=== PATIENT | female | born 1975 | race Caucasian/White ===

== ENCOUNTER 2017-04-26 19:08 | Emergency (ER) | payer OTHER ==
[~2017-04-26] VITALS: Ht 182.9 cm; Wt 90.7 kg
[2017-04-26] MEDS ORDERED: ASPIRIN 325 MG TABLET PO ONE (19:30)
[2017-04-26 19:49] LABS: BASO # 0.1 x10^3/uL (0.0-0.2); BASO % 1 % (0-3); EOS % 2 % (0-3); HEMATOCRIT 35.7 % (36.0-47.0); HEMOGLOBIN 12.3 g/dL (12.0-15.5); LYMPH # 2.5 x10^3/uL (1.0-4.8); LYMPH % 31 % (24-48); MEAN CORPUSCULAR HEMOGLOBIN 32 pg (25-35); MEAN CORPUSCULAR HGB CONC 34 g/dL (31-37); MEAN CORPUSCULAR VOLUME 94 fL (79-100); MONO % 8 % (0-9); NEUT % 59 % (31-73); PLATELET COUNT 340 x10^3/uL (140-400); RED CELL DISTRIBUTION WIDTH 12.9 % (11.5-14.5); WHITE BLOOD COUNT 8.3 x10^3/uL (4.0-11.0)
[2017-04-26 20:02] LABS: CALCIUM 8.3 mg/dL (8.5-10.1); GFR 60.5; POTASSIUM 3.7 mmol/L (3.5-5.1)
[2017-04-26 20:08] LABS: ALBUMIN 3.6 g/dL (3.4-5.0); DIRECT BILIRUBIN 0.1 mg/dL (0.0-0.2); TOTAL BILIRUBIN 0.2 mg/dL (0.2-1.0); TOTAL PROTEIN 6.4 g/dL (6.4-8.2)
[2017-04-26] MEDS ORDERED: IOHEXOL 300 MG/ML 75 ML VIAL IV ONE (20:30)
[2017-04-26] MEDS ORDERED: CONTRAST GIVEN MC PRN (20:45)
--- NOTE | 2017-04-26 21:02 | RAD ---
CT ANGIOGRAPHY CHEST dated 04/26/2017 8:23 PM Indication:chest pain, elevated d-dimer; Omni 300, 75ml Comparison: No comparison is available. Technique: Helical CT images were performed through the chest using an infusion of 75 mL Omnipaque 300. MIP reconstructions also were performed. One or more of the following individualized dose reduction techniques were utilized for this examination: 1. Automated exposure control 2. Adjustment of the mA and/or kV according to patient size 3. Use of iterative reconstruction technique Findings: Mildly heterogeneous lung attenuation probably indicates areas of air trapping. No other significant pulmonary parenchymal abnormality is seen. The central airways show no obstruction. No enlarged lymph nodes are seen. There is suggestion of previous left thyroid lobe removal. Evaluation of the pulmonary arterial tree shows no abnormal filling defect extending to the subsegmental branch level. Images through the upper abdomen show no abnormality. IMPRESSION: No evidence of pulmonary embolism or other acute abnormality. Electronically signed by: Woody Ferraro Jr., MD (04/26/2017 8:58 PM) [facility]
--- NOTE | 2017-04-26 21:14 | PHYS DOC ---
Past Medical History Past Medical History: Anxiety, Bronchitis, Fibromyalgia Additional Past Medical Histor: Fibromyalgia, epilepsy, PTSD, Insomnia, ADHD Additional Past Surgical Histo: Pelvic tumor, thyroidectomy, foot x 2, breast augmentaton Alcohol Use: Occasionally Drug Use: None Adult General Chief Complaint Chief Complaint: CHEST PAIN HPI HPI 41-year-old female presenting to the emergency department with chest pain started around 1845 that is a sharp shooting pain. It is moderate, intermittent and worse with deep breaths. She does endorse mild sweatiness of the skin initially but is now improved. She denies nausea vomiting fevers chills or recent cough. She denies unilateral leg swelling hemoptysis or personal history of blood clotting disorders. She denies recent surgery or hospitalization, however did have a recent plane ride 2 days ago from [place]. Review of systems is negative for fevers chills abdominal pain nausea vomiting. All other review of systems is negative unless otherwise noted in history of present illness. ED course: 41-year-old female presenting with chest pain. EKG obtained and reviewed by myself. Sinus rhythm. [place] is mildly leftward. ST segments are congruent. Not suggestive of ACS. Intervals within normal limits. Chest x-ray obtained and reviewed by myself shows no obvious pneumothorax or hemothorax. No obvious infiltrates. Blood work obtained which shows negative troponin initially with an elevated d-dimer. CT angiography shows no pulmonary embolism. Patient was signed out at 9 PM with plans to repeat troponin at 3 hours. Patient 's heart score was calculated to be 2. Plan upon sign out is to discharge the patient is troponin is negative. Review of Systems Review of Systems SEE ABOVE. Current Medications Current Medications Current Medications Medications (Trade) Dose Ordered Sig/Diego Start Time Stop Time Status Last Admin Dose Admin Aspirin (Lynette Aspirin) 325 mg 1X ONCE 04/26/17 19:30 04/26/17 19:31 DC 04/26/17 19:32 325 MG Info (Do NOT chart on this entry -- for MONITORING) 1 each PRN DAILY PRN 04/26/17 20:45 04/28/17 20:44 Iohexol (Omnipaque 300 Mg/ml) 75 ml 1X ONCE 04/26/17 20:30 04/26/17 20:31 DC 04/26/17 20:49 75 ML Ketorolac Tromethamine (Toradol) 30 mg 1X ONCE 04/26/17 21:15 04/26/17 21:16 DC 04/26/17 21:14 30 MG Allergies Allergies Allergies Coded Allergies Type Severity Reaction Last Updated Verified Sulfa (Sulfonamide Antibiotics) Allergy Intermediate 04/26/17 Yes latex Allergy Intermediate 04/26/17 Yes Physical Exam Physical Exam SEE ABOVE Constitutional: Well developed, well nourished, no acute distress, non-toxic appearance. [] HENT: Normocephalic, atraumatic, bilateral external ears normal, oropharynx moist, no oral exudates, nose normal. [] Eyes: PERRLA, EOMI, conjunctiva normal, no discharge. [] Neck: Normal range of motion, no tenderness, supple, no stridor. [] Cardiovascular:Heart rate regular rhythm, no murmur [] Lungs & Thorax: Bilateral breath sounds clear to auscultation [] Abdomen: Bowel sounds normal, soft, no tenderness, no masses, no pulsatile masses. [] Skin: Warm, dry, no erythema, no rash. [] Back: No tenderness, no CVA tenderness. [] Extremities: No tenderness, no cyanosis, no clubbing, ROM intact, no edema. [] Neurologic: Alert and oriented X 3, normal motor function, normal sensory function, no focal deficits noted. [] Psychologic: Affect normal, judgement normal, mood normal. [] Current Patient Data Vital Signs Vital Signs Date Time Temp Pulse Resp B/P (MAP) Pulse Ox O2 Delivery O2 Flow Rate FiO2 04/26/17 22:20 76 15 128/72 (90) 97 Room Air Lab Values Laboratory Tests Test 04/26/17 19:45 04/26/17 19:58 04/26/17 22:30 White Blood Count 8.3 x10^3/uL (4.0-11.0) Red Blood Count 3.80 x10^6/uL (3.50-5.40) Hemoglobin 12.3 g/dL (12.0-15.5) Hematocrit 35.7 % (36.0-47.0) L Mean Corpuscular Volume 94 fL (79-100) Mean Corpuscular Hemoglobin 32 pg (25-35) Mean Corpuscular Hemoglobin Concent 34 g/dL (31-37) Red Cell Distribution Width 12.9 % (11.5-14.5) Platelet Count 340 x10^3/uL (140-400) Neutrophils (%) (Auto) 59 % (31-73) Lymphocytes (%) (Auto) 31 % (24-48) Monocytes (%) (Auto) 8 % (0-9) Eosinophils (%) (Auto) 2 % (0-3) Basophils (%) (Auto) 1 % (0-3) Neutrophils # (Auto) 4.9 x10^3uL (1.8-7.7) Lymphocytes # (Auto) 2.5 x10^3/uL (1.0-4.8) Monocytes # (Auto) 0.6 x10^3/uL (0.0-1.1) Eosinophils # (Auto) 0.1 x10^3/uL (0.0-0.7) Basophils # (Auto) 0.1 x10^3/uL (0.0-0.2) D-Dimer (Grace) 0.52 ug/mlFEU (0.00-0.50) H Sodium Level 142 mmol/L (136-145) Potassium Level 3.7 mmol/L (3.5-5.1) Chloride Level 105 mmol/L (98-107) Carbon Dioxide Level 26 mmol/L (21-32) Anion Gap 11 (6-14) Blood Urea Nitrogen 8 mg/dL (7-20) Creatinine 1.0 mg/dL (0.6-1.0) Estimated GFR (Cockcroft-Gault) 60.5 Glucose Level 84 mg/dL (70-99) Calcium Level 8.3 mg/dL (8.5-10.1) L Total Bilirubin 0.2 mg/dL (0.2-1.0) Direct Bilirubin 0.1 mg/dL (0.0-0.2) Aspartate Amino Transferase (AST) 17 U/L (15-37) Alanine Aminotransferase (ALT) 19 U/L (14-59) Alkaline Phosphatase 77 U/L (46-116) Troponin I Quantitative < 0.017 ng/mL (0.000-0.055) < 0.017 ng/mL (0.000-0.055) VI-Ucu-I-Type Natriuretic Peptide 114 pg/mL (0-124) Total Protein 6.4 g/dL (6.4-8.2) Albumin 3.6 g/dL (3.4-5.0) Lipase 246 U/L (73-393) POC Urine HCG, Qualitative Hcg negative (Negative) Laboratory Tests 04/26/17 19:45 Laboratory Tests 04/26/17 19:45 EKG EKG [] Radiology/Procedures Radiology/Procedures [] Course & Med Decision Making Course & Med Decision Making Pertinent Labs and Imaging studies reviewed. (See chart for details) 2100 PM: Assumed care at shift change. Discussed findings with patient and care plan. Repeat Trop pending. At 2310 PM: repeat trop normal. View findings with the patient. At this point chest pain etiology is unclear. May be pleuritic/ pleurisy, may be reflux. Have her take an [id number] H2 darien, Naprosyn as needed for pain. Therefore she needs repeat follow-up and evaluation. I have spoken with the patient and/or caregivers. I have explained the patient' s condition, diagnosis and treatment plan based on the information available to me at this time. I have answered the patient's and/or caregiver's questions and addressed any concerns. The patient and/or caregivers have as good an understanding of the patient's diagnosis, condition and treatment plan as can be expected at this point. The patient's condition is stable and appropriate for discharge from the emergency department. The patient will pursue further outpatient evaluation with the primary care physician or other designated or consulting physician as outlined in the discharge instructions. The patient and/or caregivers are agreeable to this plan of care and follow-up instructions have been explained in detail. The patient and/or caregivers have received these instructions in written format and have expressed an understanding of the discharge instructions. The patient and/or caregivers are aware that any significant change in condition or worsening of symptoms should prompt an immediate return to this or the closest emergency department or a call to 911. Dragon Disclaimer Dragon Disclaimer This electronic medical record was generated, in whole or in part, using a voice recognition dictation system. Departure Departure Impression: Primary Impression: Chest pain Disposition: HOME, SELF-CARE Condition: STABLE Referrals: NON,STAFF (PCP) Patient Instructions: Chest Pain (Nonspecific) Additional Instructions: Thank you for allowing us to participate in your care today. Followup with your primary care physician in 3 days if your symptoms do not improve. Call your Primary Doctor tomorrow and inform them of your visit today. If you do not have a primary care provider you can ask for a list of our primary care providers. Return to the emergency department you have any new or concerning findings. This should be evaluated by the primary care physician and any necessary consulting services for continued management within a few days after discharge. Return to emergency room if you have any new or concerning symptoms including but not limited to fever, chills, nausea, vomiting, intractable pain, any new rashes, chest pain, shortness of air, uncontrolled bleeding, difficulty breathing, and/or vision loss. Scripts Naproxen (NAPROSYN) 500 Mg Tablet 1 TAB PO BID, #30 TAB 1 Refill Prov: TRI ENRIQUE MD 04/26/17 Problem Qualifiers Primary Impression: Chest pain Chest pain type: intercostal pain Qualified Codes: R07.82 - Intercostal pain RUIZ MONTANA MD Apr 26, 2017 21:14 TRI ENRIQUE MD Apr 26, 2017 21:26
[2017-04-26] MEDS ORDERED: KETOROLAC 30 MG/ML INJ. IV ONE (21:15)
[2017-04-26] MEDS ORDERED: NAPR500T PO (21:26)
[2017-04-26 23:20] VITALS: BP 118/79
--- NOTE | 2017-04-27 06:14 | EKG ---
[facility] [address] [place] [address] Test Date: 2017-04-26 Test Time: 19:19:00 Pat Name: JOSE FITZGERALD Department: Room: Gender: F Local [employer]: RADHA : 1975 Requested By: RUIZ MONTANA Order Number: [id number] Reading MD: Jes Bourne Measurements Intervals [place] Rate: 73 P: 28 TX: 132 QRS: 8 QRSD: 88 T: 32 QT: 402 QTc: 447 Interpretive Statements SINUS RHYTHM LOW VOLTAGE POSSIBLE OLD ANTEROSEPTAL WALL LA ABNORMAL ECG Electronically Signed On 04-28-2017 19:15:54 CDT by Jes Bourne
--- NOTE | 2017-04-27 08:16 | RAD ---
AP chest, 04/26/2017: History: Chest pain The heart size and pulmonary vascularity are normal. No pulmonary infiltrates are seen. There is a calcified granuloma in the left base. There is no evidence of pleural fluid. IMPRESSION: No acute cardiopulmonary abnormality is detected.
== END 2017-04-26 23:41 | disposition home or self-care (01) ==
LOC: ER 19:08
DX: R07.82 Intercostal pain (principal); F90.9 Attention-deficit hyperactivity disorder, unspecified type; G40.909 Epilepsy, unspecified, not intractable, without status epilepticus; M79.7 Fibromyalgia; F43.10 Post-traumatic stress disorder, unspecified; Z88.2 Allergy status to sulfonamides; Z91.040 Latex allergy status
CPT/HCPCS: 36415; 71010; 71275; 80048; 80076; 81025; 83690; 83880; 84484; 85025; 85379; 93005; 96374; 99285; J1885; Q9967